=== PATIENT | male | born 1955 | race Caucasian/White ===

== ENCOUNTER 2022-07-09 23:11 | Emergency (ER) | payer MEDICARE, SELFPAY ==
[2022-07-09 23:22] VITALS: BP 138/82; PULSE 74; RESP 16; TEMP 37.7; O2SAT 94; BMI 27.4
--- NOTE | 2022-07-09 23:41 | CRLHL7_ITS ---
For Patients: As a result of the Century Cures Act, medical imaging exams and procedure reports are released immediately into your electronic medical record. You may view this report before your referring provider. If you have questions, please contact your health care provider. INDICATION: .Shortness of breath. TECHNIQUE: Chest 1 view. COMPARISON: 11/23/2021. FINDINGS: Cardiovascular and mediastinum: Heart size and vasculature are normal in caliber and appearance. Lungs and pleural spaces: Lungs are clear. No sign of infiltrate or mass. No sign of pleural effusion. No pneumothorax. Bones and soft tissues: No significant findings. IMPRESSION: Unremarkable chest. Dictated by Corey Augustin MD @ 07/10/2022 12:38:02 AM (Electronically Signed)
[2022-07-10 00:12] LABS: Basophils Absolute Auto 0.02 K/uL (0.00-0.30); Basophils Percent Auto 0.4 % (0.0-3.0); Hematocrit 40.9 % (37.0-53.0); Hemoglobin* 14.9 gm/dL (13.5-17.5); Immature Granulocytes Abs Auto 0.01 K/uL (0.00-0.30); Lymphocytes Percent Auto 14.4 % (20-44); Mean Corpuscular HGB Conc 36 gm/dL (32-36); Mean Corpuscular Hemoglobin 31 pg (26-34); Mean Corpuscular Volume 86 fL (80-100); Monocytes Percent Auto 20.7 % (0.0-11.0); Neutrophils Absolute Auto 3.08 K/uL (1.7-7.0); Neutrophils Percent Auto 64.3 % (42.0-72.0); Platelet Count* 139 K/uL (140-440); RDW Coefficient of Variation % 12.7 % (11.5-15.5); Red Blood Count 4.77 m/uL (4.30-5.90); White Blood Count* 4.79 K/uL (4.50-11.00)
[2022-07-10 00:13] LABS: Slide Review Reflex No
[2022-07-10 00:28] LABS: Chloride* 95 mmol/L (96-114)
[2022-07-10 00:29] LABS: Sodium* 136 mmol/L (135-149)
[2022-07-10 00:32] LABS: Blood Urea Nitrogen* 19 mg/dL (7-30); Calcium* 8.6 mg/dL (8.4-10.6); Carbon Dioxide* 29 mmol/L (20-32); Creatinine* 1.1 mg/dL (0.5-1.5); Est. Creatinine Clearance* 64.77; Estimated Glomerular Filt Rate 75 ml/min; Glucose* 114 mg/dL (60-115)
[2022-07-10 00:33] LABS: Potassium* 2.8 mmol/L (3.6-5.1)
--- NOTE | 2022-07-10 00:34 | ED.NURSE ---
critical potassium 2.8 updated to Block
[2022-07-10] MEDS: POTASSIUM BICARB 25 MEQ EFFERVESCENT TAB 50 MEQ PO (00:49)
[2022-07-10 00:56] LABS: Magnesium* 1.6 mg/dL (1.5-2.6)
--- NOTE | 2022-07-10 01:10 | ED_ITS ---
HPI - General Adult General Date Seen: 07/10/22 Chief complaint: Fever Stated complaint: Covid+ Time Seen by Provider: 07/10/22 00:04 Source: patient History of Present Illness HPI narrative: Patient is a 66-year-old male who has been sick for 2 days with fever, cough, body aches, fatigue. He took a COVID test at home yesterday which was positive. He is vaccinated, believes he has had COVID twice previously, once before the pandemic really started, and once last winter. He feels worse this time than previously. He does take Eliquis for atrial fibrillation. He has not had significant shortness of breath. No chest pain. No vomiting or diarrhea. Just feels generally poorly. He has been taking ibuprofen, he was under the impression that he was not supposed to take Tylenol because of his anticoagulation. His thinks that he has that wrong. Related Data Home Medications Medication Instructions Recorded Confirmed amlodipine 5 mg tablet mg 07/09/22 apixaban 5 mg tablet (Eliquis) mg 07/09/22 atorvastatin 40 mg tablet mg 07/09/22 chlorthalidone 25 mg tablet mg 07/09/22 fluticasone propionate 50 intranasal 07/09/22 mcg/actuation nasal spray,suspension losartan 50 mg tablet mg 07/09/22 meloxicam 15 mg tablet mg 07/09/22 metoprolol tartrate 25 mg tablet mg 07/09/22 omeprazole 20 mg capsule,delayed mg 07/09/22 release Previous Rx's Medication Instructions Recorded potassium chloride 20 mEq 20 meq PO DAILY #10 tabs 07/10/22 tablet,extended release Allergies Allergy/AdvReac Type Severity Reaction Status Date / Time No Known Drug Allergies Allergy Verified 07/09/22 23:25 Review of Systems Status of ROS: Reports: 10 or more systems reviewed and unremarkable except as noted in History and below [facility] Medical History Aortic dilatation Aortic root dilation Atrial fibrillation Dysphagia Hyperlipidemia Hypertension Low testosterone level in male Meningioma Obstructive sleep apnea Surgical History History of cataract surgery History of radiofrequency ablation procedure for cardiac arrhythmia Social History Smoking Status: Never smoker Do you use any of these nicotine containing products: None How often do you have a drink containing alcohol: never AUDIT-C Alcohol total score: 0 Non-prescribed substance use: marijuana (any form) Exam Narrative: Exam Narrative: Vital signs as noted below. In general, an alert, nontoxic man. Breathing easily. Head: Normocephalic, atraumatic. Eyes: Pupils are equal reactive. Extraocular movements are full. Conjunctivae are normal. ENT: Mucous membranes are moist. Throat is normal. Neck: Supple without lymphadenopathy. Heart: Regular rate and rhythm. No murmur or rub. Lungs: Clear bilaterally. No increased work of breathing, crackles or wheezes. Abdomen: Soft and nontender. Obese. Extremities: Well perfused. No edema. No calf tenderness. Pulses intact. Neurologic: Patient is alert and oriented to person and place. Speech is fluent. Face is symmetric. Moves all extremities equally. Affect: Normal. Skin: Warm and dry. Well perfused. Const: Vital Signs, click to edit/add: Vital Signs - 24 hr 07/09/22 23:22 Temperature 99.9 F H Pulse Rate [Left P ulse Oximeter] 74 Respiratory Rate 16 Blood Pressure [Le ft Upper Arm] 138/82 Pulse Oximetry 94 Oxygen Delivery Me thod Room Air Documenting provider has reviewed patient's vital signs: yes Course Course Hospital Course: Patient had a chest x-ray which by my review was unremarkable. Final radiology report was likewise unremarkable. I do not see any evidence of COVID pneumonia or bacterial pneumonia. His lungs are clear, he is not showing any signs of respiratory distress. Does not have any wheezing. I did do a CBC and metabolic panel. His white blood cell count is normal at this time. Platelets are just a tiny bit low. His metabolic panel is remarkable only for a potassium of 2.8. His creatinine is normal. I did check a magnesium which was 1.6. In reviewing his medications, he is on chlorthalidone, and I wonder if that is contributing to his hypokalemia. I gave him 50 mcg of potassium here. He is very eager to go home, it is the middle the night. He assures me that he will talk with his primary doctor tomorrow, he is not really interested in staying further for a recheck of his potassium. As such, I am going to let him go home, I have given a prescription for further potassium replacement at home, and I have asked him at least in the short term to hold his chlorthalidone in case that is contributing to his hypokalemia. Discussed that if he is feeling worse in any way, worsening weakness, shortness of breath, or any other acute worsening he should return to the emergency department. Also discussed that it is very important that he follow this issue up, as we are stopping his chlorthalidone which may affect his blood pressure, and also replacing his potassium at the same time. Discussed that elevated potassium is even more are you bleed dangerous than low potassium, so this will need to be followed and rechecked. Verbalizes understanding. In terms of his COVID, he is not eligible for Paxlovid due to his Eliquis. We did talk about the option of remdesivir. At this time he is not interested in that. They are going to do a little more looking into it, and if they decide to pursue it, he understands that he will need to come back in the next day or two as it needs to be started within the 1st 5 days of onset of symptoms. Vital Signs Vital signs: Initial Vital Signs Temperature 99.9 F H 07/09/22 23:22 Temperature Source Temporal Artery Scan 07/09/22 23:22 Pulse Rate 74 07/09/22 23:22 Pulse Rhythm 07/09/22 23:22 Respiratory Rate 16 07/09/22 23:22 Blood Pressure 138/82 07/09/22 23:22 Blood Pressure Mean 100 07/09/22 23:22 Blood Pressure Position Sitting 07/09/22 23:22 Pulse Oximetry 94 07/09/22 23:22 Oxygen Delivery Method 07/09/22 23:22 Vital Signs Temperature 99.9 F H 07/09/22 23:22 Pulse Rate 74 07/09/22 23:22 Respiratory Rate 16 07/09/22 23:22 Blood Pressure 138/82 07/09/22 23:22 Pulse Oximetry 94 07/09/22 23:22 Oxygen Delivery Method 07/09/22 23:22 Temperature 99.9 F H 07/09/22 23:22 Pulse Rate 74 07/09/22 23:22 Respiratory Rate 16 07/09/22 23:22 Blood Pressure 138/82 07/09/22 23:22 Pulse Oximetry 94 07/09/22 23:22 Oxygen Delivery Method 07/09/22 23:22 Medical Decision Making Lab Data Labs: Lab Results 07/10/22 07/10/22 07/10/22 Range/Units 00:00 00:00 00:00 WBC 4.79 (4.50-11.00) K/uL RBC 4.77 (4.30-5.90) m/uL Hgb 14.9 (13.5-17.5) gm/dL Hct 40.9 (37.0-53.0) % MCV 86 (80-100) fL MCH 31 (26-34) pg MCHC 36 (32-36) gm/dL RDW Coeff of Terra 12.7 (11.5-15.5) % Plt Count 139 L (140-440) K/uL Neut % (Auto) 64.3 (42.0-72.0) % Lymph % (Auto) 14.4 L (20-44) % Childress % (Auto) 20.7 H (0.0-11.0) % Eos % (Auto) 0.0 (0.0-7.0) % Baso % (Auto) 0.4 (0.0-3.0) % Neut # (Auto) 3.08 (1.7-7.0) K/uL Lymph # (Auto) 0.70 L (0.90-2.90) K/uL Childress # (Auto) 1.00 H (0.00-0.90) K/UL Eos # (Auto) 0.00 (0.00-0.50) K/uL Baso # (Auto) 0.02 (0.00-0.30) K/uL Abs Immat Gran (auto) 0.01 (0.00-0.30) K/uL Sodium 136 (135-149) mmol/L Potassium 2.8 L* (3.6-5.1) mmol/L Chloride 95 L (96-114) mmol/L Carbon Dioxide 29 (20-32) mmol/L BUN 19 (7-30) mg/dL Creatinine 1.1 (0.5-1.5) mg/dL Estimated Creat Clear 64.77 Estimated GFR 75 ml/min Glucose 114 (60-115) mg/dL Calcium 8.6 (8.4-10.6) mg/dL Magnesium 1.6 (1.5-2.6) mg/dL Discharge Plan Discharge Clinical Impression: COVID-19, Hypokalemia Patient Disposition: Home, Self-Care Condition: Stable Instructions: Hypokalemia (ED), COVID-19 (Coronavirus Disease 2019) (ED) Additional Instructions: 1: Remdesivir infusion is an option for you as long as you start it within 5 days of onset of symptoms. Return to the ER if you change your mind about starting this medication. Likewise, if you are feeling worse, developed more shortness of breath or other acute worsening, return at any time to the emergency department. 2: Your potassium was low here today. For now, I would like you to hold your chlorthalidone. Take potassium supplements as prescribed. Call your primary clinic tomorrow to discuss a plan. Prescriptions: New potassium chloride 20 mEq tablet extended release 20 meq PO DAILY Qty: 10 2RF No Action losartan 50 mg tablet atorvastatin 40 mg tablet meloxicam 15 mg tablet chlorthalidone 25 mg tablet amlodipine 5 mg tablet omeprazole 20 mg capsule,delayed release(DR/EC) Label Comments: TAKE 1 CAPSULE BY MOUTH EVERY DAY BEFORE A MEAL fluticasone propionate 50 mcg/actuation spray,suspension INTRANASAL Label Comments: INHALE 2 PUFFS INTO AFFECTED NOSTRILS ONCE DAILY metoprolol tartrate 25 mg tablet Eliquis 5 mg tablet Follow Up/Referrals: Provider,Not a Local [Referring] - Stand Alone Forms: [employer] Info Instructions
[2022-07-10 01:15] VITALS: BP 122/76; PULSE 69; O2SAT 94
[2022-07-10 01:30] VITALS: RESP 16; TEMP 37.7; O2SAT 94
== END 2022-07-10 01:20 | disposition home or self-care (01) ==
PROVIDERS: Family Medicine; Emergency Provider Emergency Medicine; PCP Physician Assistant
DX: U07.1 COVID-19 (principal); E87.6 Hypokalemia
CPT/HCPCS: 36415; 71045; 80048; 83735; 85025; 99284; A9270

== ENCOUNTER 2024-07-20 12:03 | Observation (INO) | payer MEDICARE, SELFPAY ==
[2024-07-20] VITALS (47 sets, daily range): BP systolic 60–130; BP diastolic 31–86; PULSE 50–84; RESP 18–20; TEMP 36.2–37; O2SAT 87–100; BMI 41.5; BMI 43.5
--- NOTE | 2024-07-20 12:33 | CRLHL7_ITS ---
For Patients: As a result of the Cures Act, medical imaging exams and procedure reports are released immediately into your electronic medical record. You may view this report before your referring provider. If you have questions, please contact your health care provider. INDICATION: Chest pain. TECHNIQUE: Chest/left ribs, 4 views. COMPARISON: None. FINDINGS: Cardiovascular and mediastinum: Heart size and vasculature are normal in caliber and appearance. Lungs and pleural spaces: Lungs are clear. No sign of infiltrate or mass. No sign of pleural effusion. No pneumothorax. Bones and soft tissues: Acute minimally displaced left 11th rib fracture. IMPRESSION: Acute minimally displaced left 11th rib fracture. Dictated by Paramjit Correa MD @ 07/20/2024 1:01:39 PM (Electronically Signed)
[2024-07-20 12:43] LABS: Basophils Percent Auto 0.4 % (0.0-3.0); Hemoglobin* 15.1 gm/dL (13.5-17.5); Immature Granulocytes Pct Auto 0.4 %; Lymphocytes Percent Auto 12.5 % (20-44); Mean Corpuscular HGB Conc 35 gm/dL (32-36); Mean Corpuscular Hemoglobin 30 pg (26-34); Mean Corpuscular Volume 86 fL (80-100); Monocytes Percent Auto 7.5 % (0.0-11.0); Neutrophils Percent Auto 78.2 % (42.0-72.0); Platelet Count* 209 K/uL (140-440); RDW Coefficient of Variation % 12.7 % (11.5-15.5); Red Blood Count 5.01 m/uL (4.30-5.90); White Blood Count* 11.24 K/uL (4.50-11.00)
[2024-07-20 12:44] LABS: Lactate* 2.6 mmol/L (0.5-1.9)
[2024-07-20 12:45] LABS: Slide Review Reflex No
[2024-07-20] MEDS: 0.9 % SODIUM CHLORIDE 1000 ml 1,000 ML IV (12:45)
[2024-07-20 12:59] LABS: Albumin* 4.4 g/dL (3.3-5.0)
[2024-07-20 13:00] LABS: Chloride* 99 mmol/L (96-114); Potassium* 3.3 mmol/L (3.6-5.1); Sodium* 134 mmol/L (135-149)
[2024-07-20 13:02] LABS: Creatinine* 1.1 mg/dL (0.5-1.5); Est. Creatinine Clearance* 60.93; Estimated Glomerular Filt Rate 74 ml/min
[2024-07-20 13:03] LABS: Alanine Aminotransferase* 24 U/L (4-50); Alkaline Phosphatase* 89 U/L (40-150); Anion Gap 9 mEq/L (7-15); Aspartate Amino Transferase* 30 U/L (12-35); Bilirubin Direct* 0.3 mg/dL (0.0-0.5); Bilirubin Total* 1.5 mg/dL (0.1-1.5); Blood Urea Nitrogen* 20 mg/dL (7-30); Carbon Dioxide* 26 mmol/L (20-32); Glucose* 150 mg/dL (60-115)
--- NOTE | 2024-07-20 13:03 | ED.GENADULT ---
HPI - General Adult General Chief complaint: Hypotension Stated complaint: dizzy Time Seen by Provider: 07/20/24 12:27 History of Present Illness HPI narrative: 68-year-old male presenting today with hypotension. Patient had a prostate biopsy done earlier this morning, few hours ago. The when out to eat for breakfast. During breakfast he started feeling unwell, lightheaded. He stood up to go to the car and fell over hitting his left lateral chest wall against the cement fireplace. He complains of pain at the site of impact. He states that he still feels unwell and slightly lightheaded. He denies any vertigo, chest pain, diaphoresis, shortness of breath. He denies hitting his head or losing consciousness. He denies any vision changes or ringing in his ears. He denies any rectal or urethral bleeding since his procedure. He denies abdominal discomfort or increased rectal or pain. Patient does have a history of atrial fibrillation and is anticoagulated, has not taken his Eliquis for about a week. Did take his blood pressure medications this morning. Related Data Home Medications ?Medication ?Instructions ?Recorded ?Confirmed amlodipine 5 mg tablet 10 mg 07/09/22 apixaban 5 mg tablet (Eliquis) 5 mg Q12H 07/09/22 atorvastatin 40 mg tablet 40 mg 07/09/22 metoprolol tartrate 25 mg tablet 25 mg 07/09/22 omeprazole 20 mg capsule,delayed 20 mg 07/09/22 release [place]-3 07/20/24 losartan 100 1 tab PO DAILY 07/20/24 07/20/24 mg-hydrochlorothiazide 25 mg tablet (Hyzaar) multivitamin 07/20/24 Allergies Allergy/AdvReac Type Severity Reaction Status Date / Time No Known Drug Allergies Allergy Verified 07/20/24 17:19 Review of Systems Status of ROS: Reports: 10 or more systems reviewed and unremarkable except as noted in History and below [facility] Medical History Aortic dilatation ?I77.819 - Aortic ectasia, unspecified site (ICD-10) Meningioma ?D32.9 - Benign neoplasm of meninges, unspecified (ICD-10) Dysphagia ?R13.10 - Dysphagia, unspecified (ICD-10) Hyperlipidemia ?E78.5 - Hyperlipidemia, unspecified (ICD-10) Aortic root dilation ?I77.810 - Thoracic aortic ectasia (ICD-10) Obstructive sleep apnea ?G47.33 - Obstructive sleep apnea (adult) (pediatric) (ICD-10) Hypertension ?I10 - Essential (primary) hypertension (ICD-10) Atrial fibrillation ?I48.91 - Unspecified atrial fibrillation (ICD-10) Low testosterone level in male ?R79.89 - Other specified abnormal findings of blood chemistry (ICD-10) Surgical History History of cataract surgery ?Z98.49 - Cataract extraction status, unspecified eye (ICD-10) History of radiofrequency ablation procedure for cardiac arrhythmia ?Z98.890 - Other specified postprocedural states (ICD-10) Social History Smoking Status: Never smoker Do you use any of these nicotine containing products: None How often do you have a drink containing alcohol: never AUDIT-C Alcohol total score: 0 Non-prescribed substance use: marijuana (any form) Exam Narrative: Exam Narrative: Well-nourished well-developed patient in no acute distress. Alert and oriented. Answers questions appropriately. Mood and affect are appropriate. Thoughts are goal oriented and rational. No tangential or magical thinking noted. Patient speaks in full sentences without needing to catch his breath. Patient is hypotensive. HEENT: Normocephalic atraumatic. Pupils are equally round reactive to light. Extraocular muscles are intact. Conjunctivae are moist without any icterus noted. Moist mucous membranes. Posterior pharynx is normal. Neck is soft without any lymphadenopathy or thyromegaly. No masses are appreciated. Cardiovascular: Heart is regular rate and rhythm S1 and S2 are present without any murmurs. Lungs: Clear to auscultation bilaterally no wheezes rhonchi or rales are appreciated. Patient takes deep breaths without any discomfort. Abdomen: Soft and nontender nondistended with normal bowel sounds. No guarding or rebound. Extremities: Bilateral lower extremities are without edema. Skin: Well perfused without any obvious rashes. Const: Vital Signs, click to edit/add: Vital Signs - 24 hr 07/20/24 12:09 07/20/24 12:34 07/20/24 12:37 Temperature Pulse Rate Respiratory Rate 18 Blood Pressure 90/51 L 87/40 L Blood Pressure [Le ft Upper Arm] 60/31 L Pulse Oximetry 92 Oxygen Delivery Me thod Room Air 07/20/24 12:38 07/20/24 12:42 07/20/24 12:58 Temperature Pulse Rate 50 L 55 L Respiratory Rate Blood Pressure 93/52 L 82/35 L Blood Pressure [Le ft Upper Arm] Pulse Oximetry 94 94 Oxygen Delivery Me thod 07/20/24 12:59 07/20/24 13:00 07/20/24 13:03 Temperature Pulse Rate 53 L 56 L 56 L Respiratory Rate Blood Pressure 81/44 L Blood Pressure [Le ft Upper Arm] Pulse Oximetry 94 95 93 Oxygen Delivery Me thod 07/20/24 13:04 07/20/24 13:06 07/20/24 13:15 Temperature Pulse Rate 57 L 60 Respiratory Rate Blood Pressure Blood Pressure [Le ft Upper Arm] Pulse Oximetry 96 97 96 Oxygen Delivery Me thod 07/20/24 13:17 07/20/24 13:18 07/20/24 13:22 Temperature Pulse Rate 57 L 60 66 Respiratory Rate Blood Pressure 100/58 L 97/86 Blood Pressure [Le ft Upper Arm] Pulse Oximetry 96 96 97 Oxygen Delivery Me thod 07/20/24 13:27 07/20/24 13:30 07/20/24 13:32 Temperature Pulse Rate 51 L 54 L 58 L Respiratory Rate Blood Pressure 102/61 94/46 L Blood Pressure [Le ft Upper Arm] Pulse Oximetry 95 96 97 Oxygen Delivery Me thod 07/20/24 13:37 07/20/24 13:43 07/20/24 13:52 Temperature Pulse Rate 56 L 70 69 Respiratory Rate Blood Pressure 114/63 108/75 112/64 Blood Pressure [Le ft Upper Arm] Pulse Oximetry 97 96 95 Oxygen Delivery Me thod 07/20/24 13:57 07/20/24 14:17 07/20/24 14:48 Temperature Pulse Rate 69 74 68 Respiratory Rate Blood Pressure 110/63 110/67 114/52 L Blood Pressure [Le ft Upper Arm] Pulse Oximetry 95 94 92 Oxygen Delivery Me thod 07/20/24 15:02 07/20/24 15:03 07/20/24 15:30 Temperature Pulse Rate 73 71 73 Respiratory Rate Blood Pressure 115/73 Blood Pressure [Le ft Upper Arm] Pulse Oximetry 92 92 95 Oxygen Delivery Me thod 07/20/24 15:45 07/20/24 16:00 07/20/24 16:02 Temperature Pulse Rate 75 74 70 Respiratory Rate Blood Pressure 105/60 Blood Pressure [Le ft Upper Arm] Pulse Oximetry 92 93 92 Oxygen Delivery Ky thod 07/20/24 16:15 07/20/24 16:44 07/20/24 16:45 Temperature Pulse Rate 78 78 78 Respiratory Rate Blood Pressure Blood Pressure [Le ft Upper Arm] Pulse Oximetry 93 96 100 Oxygen Delivery Ky thod 07/20/24 16:46 07/20/24 17:00 07/20/24 17:02 Temperature Pulse Rate 71 69 72 Respiratory Rate Blood Pressure 121/72 109/59 L Blood Pressure [Le ft Upper Arm] Pulse Oximetry 100 92 92 Oxygen Delivery Ky thod 07/20/24 17:15 07/20/24 17:30 07/20/24 17:33 Temperature Pulse Rate 70 58 L 67 Respiratory Rate Blood Pressure 111/53 L Blood Pressure [Le ft Upper Arm] Pulse Oximetry 91 94 87 L Oxygen Delivery Ky thod 07/20/24 17:45 07/20/24 17:55 Temperature 97.4 F L Pulse Rate 57 L Respiratory Rate 20 Blood Pressure Blood Pressure [Le ft Upper Arm] Pulse Oximetry 94 Oxygen Delivery Me thod Course Course ED Course: IV is established normal saline started. Labs are drawn. EKG, read by me, shows sinus bradycardia with a pulse of 53. I spoke to Dr. Arturo Benitez, who did the patient's procedure this morning. He stated that the procedure was uncomplicated. He does not expect there to be significant internal hemorrhage. CBC shows a white cell count of 11.2, 78% neutrophils. Sodium and potassium both slightly low at 134 3.3. Remainder of chemistries are unremarkable. Lactate is elevated at 2.6. Normal LFTs. Normal troponin. D-dimer is markedly elevated at greater than 20. Differential diagnoses for hypotension at this time include PE, hemorrhage status post prostate procedure, dehydration. Less likely but not impossible would include AAA rupture, postprocedure sepsis. At this time a chest abdomen pelvis CT is recommended, however our CT scanner is not operative for another 2 hours. Patient did respond to IV fluids blood pressure is going up into the 1 teens systolic. Because of this we felt that it was okay to wait. We did start Zosyn at this time as well. Repeat lactate was improved at 1.8. During this time of observation patient did not feel lightheaded, no chest pain or shortness of breath. No abdominal or rectal pain. No rectal bleeding. Chest, abdomen, pelvis CT did not show any acute abnormality note explain hypotension. Did speak to the radiologist about the possibility of a PE, he stated that there was no evidence of significant PE at this time. There could be a potential small PE however that would not explain his significant hypotension. Urine and blood cultures pending at this time. Smoked or hospitalist to accept the patient for admission at this time given that he has unexplained hypotension. Vital Signs Vital signs: Initial Vital Signs Respiratory Rate 18 07/20/24 12:09 Blood Pressure 60/31 L 07/20/24 12:09 Blood Pressure Mean 40 L 07/20/24 12:09 Blood Pressure Position Sitting 07/20/24 12:09 Pulse Oximetry 92 07/20/24 12:09 Oxygen Delivery Method Room Air 07/20/24 12:09 Vital Signs Respiratory Rate 18 07/20/24 12:09 Blood Pressure 60/31 L 07/20/24 12:09 Pulse Oximetry 92 07/20/24 12:09 Oxygen Delivery Method Room Air 07/20/24 12:09 Temperature 97.4 F L 07/20/24 17:55 Pulse Rate 57 L 07/20/24 17:45 Respiratory Rate 20 07/20/24 17:55 Blood Pressure 111/53 L 07/20/24 17:33 Pulse Oximetry 94 07/20/24 17:45 Oxygen Delivery Method Room Air 07/20/24 12:09 Medications Administered Medications: Discontinued Medications Generic Name Dose Route Start Last Admin Trade Name Freq PRN Reason Stop Dose Admin Hydrocodone Bitart/Acetaminophen 1 tab 07/20/24 13:45 07/20/24 14:20 Hydrocodone-Acetamin 5-325 Mg 1 Tab PO 07/20/24 13:46 1 tab ONCE ONE Administration Sodium Chloride 1,000 mls @ 1,000 mls/hr 07/20/24 12:45 07/20/24 14:49 0.9 % Sodium Chloride 1000 Ml IV 07/20/24 13:44 Infused .Q1H MAIRA Infusion Piperacillin Sod/Tazobactam 100 mls @ 200 mls/hr 07/20/24 13:22 07/20/24 15:27 Sod 4.5 gm/ Sodium Chloride IVPB 07/20/24 13:23 Infused ONCE ONE Infusion Medical Decision Making MDM Narrative Medical decision making narrative: 68-year-old male unexplained hypotension. Patient will be admitted for further management Lab Data Lab results reviewed: Yes I reviewed the patient's lab results Labs: Lab Results 07/20/24 07/20/24 07/20/24 Range/Units 12:35 14:40 15:34 WBC 11.24 H 13.01 H (4.50-11.00) K/uL RBC 5.01 5.27 (4.30-5.90) m/uL Hgb 15.1 15.9 (13.5-17.5) gm/dL Hct 43.0 45.1 (37.0-53.0) % MCV 86 86 (80-100) fL MCH 30 30 (26-34) pg MCHC 35 35 (32-36) gm/dL RDW Coeff of Terra 12.7 12.6 (11.5-15.5) % Plt Count 209 174 (140-440) K/uL Neut % (Auto) 78.2 H 86.9 H (42.0-72.0) % Lymph % (Auto) 12.5 L 5.5 L (20-44) % [place] % (Auto) 7.5 7.0 (0.0-11.0) % Eos % (Auto) 1.0 0.2 (0.0-7.0) % Baso % (Auto) 0.4 0.2 (0.0-3.0) % Neut # (Auto) 8.80 H 11.30 H (1.7-7.0) K/uL Lymph # (Auto) 1.40 0.70 L (0.90-2.90) K/uL [place] # (Auto) 0.80 0.90 (0.00-0.90) K/UL Eos # (Auto) 0.10 0.00 (0.00-0.50) K/uL Baso # (Auto) 0.00 0.00 (0.00-0.30) K/uL Abs Immat Gran (auto) 0.00 0.00 (0.00-0.30) K/uL Imm/Tot Granulo (auto) 0.4 0.2 % D-Dimer Quant (PE/DVT) > 20.00 H (0.00-0.50) ug/ml Sodium 134 L (135-149) mmol/L Potassium 3.3 L (3.6-5.1) mmol/L Chloride 99 (96-114) mmol/L Carbon Dioxide 26 (20-32) mmol/L Anion Gap 9 (7-15) mEq/L BUN 20 (7-30) mg/dL Creatinine 1.1 (0.5-1.5) mg/dL Estimated Creat Clear 60.93 Estimated GFR 74 ml/min Glucose 150 H (60-115) mg/dL Lactate 2.6 H 1.8 (0.5-1.9) mmol/L Calcium 9.0 (8.4-10.6) mg/dL Total Bilirubin 1.5 (0.1-1.5) mg/dL Direct Bilirubin 0.3 (0.0-0.5) mg/dL AST 30 (12-35) U/L ALT 24 (4-50) U/L Alkaline Phosphatase 89 (40-150) U/L Troponin I < 0.01 L (0.01-0.04) ng/mL Total Protein 7.0 (6.0-8.3) g/dL Albumin 4.4 (3.3-5.0) g/dL Imaging Data Chest x-ray: Attestation: I have reviewed the pertinent imaging results. Radiologist's impression: Chest/left ribs, 4 views. COMPARISON: None. FINDINGS: Cardiovascular and mediastinum: Heart size and vasculature are normal in caliber and appearance. Lungs and pleural spaces: Lungs are clear. No sign of infiltrate or mass. No sign of pleural effusion. No pneumothorax. Bones and soft tissues: Acute minimally displaced left 11th rib fracture. IMPRESSION: Acute minimally displaced left 11th rib fracture. CT Chest/Ab/Pelvis: Attestation: I have reviewed the pertinent imaging results. Radiologist's impression: FINDINGS: CHEST: Cardiovascular structures: Heart size is normal. Coronary artery calcifications. Thoracic aorta and main pulmonary artery are normal in caliber. Mediastinum and osiot: No mass or adenopathy. Lungs and pleura: Scattered atelectasis.. No suspicious nodules, infiltrates, or effusions. No pneumothorax. Chest wall and axilla: No mass or adenopathy. Bones: No suspicious bone lesions. Unremarkable for age. ABDOMEN AND PELVIS: Liver: Mild decreased hepatic attenuation. Few scattered tiny hepatic cysts. Gallbladder and bile ducts: Cholecystectomy Pancreas: Unremarkable. Spleen: Unremarkable. Adrenal glands: Unremarkable. Kidneys: Unremarkable. GI tract: Mild perirectal wall thickening and inflammatory stranding. Colonic diverticulosis. Trace mesenteric inflammation about the proximal sigmoid colon. No bowel obstruction. Vascular structures: Unremarkable. Lymph nodes: Unremarkable. Miscellaneous: Small volume peritoneal air in the right mesorectal space (series 2/image 265). No free air or significant free fluid. Pelvic Organs: Mild prostatomegaly subtle periprostatic inflammatory stranding. Bones: No suspicious bone lesions. Unremarkable for age. IMPRESSION: Mild prostatomegaly with mild rectal wall thickening and subtle periprostatic and perirectal inflammatory stranding. Additional small volume peritoneal air in the right mesorectal space. Constellation of findings are likely related to recent prostate biopsy. Superimposed prostatitis and proctitis could have a similar appearance and should be clinically excluded. No drainable fluid collections or large volume free intraperitoneal air. Colonic diverticulosis with trace mesenteric edema about the proximal sigmoid colon. Early acute diverticulitis not excluded. Recommend correlation with localized physical examination and laboratory values. Otherwise, no acute intra thoracic or intra-abdominal/pelvic abnormality. Additional chronic findings as above. Discharge Plan Discharge Clinical Impression: Acute hypotension Patient Disposition: Admitted As Observation Condition: Stable Prescriptions: No Action atorvastatin 40 mg tablet 40 mg amlodipine 5 mg tablet 10 mg omeprazole 20 mg capsule,delayed release(DR/EC) 20 mg Patient Comments: TAKE 1 CAPSULE BY MOUTH EVERY DAY BEFORE A MEAL metoprolol tartrate 25 mg tablet 25 mg Eliquis 5 mg tablet 5 mg Q12H multivitamin [place]-3 losartan-hydrochlorothiazide [Hyzaar] 100-25 mg tablet 1 tab PO DAILY Follow Up/Referrals: Alia Klein PA [Primary Care Provider] -
[2024-07-20 13:15] LABS: Troponin I* < 0.01 ng/mL (0.01-0.04)
[2024-07-20] MEDS: HYDROCODONE-ACETAMIN 5-325 MG 1 TAB PO (14:20)
[2024-07-20] MEDS: PIPERACILLIN/TAZOBACTAM 4.5 GM in 0.9 % SODIUM CHLORIDE Mini-bag 100 ML IVPB (14:50)
[2024-07-20 14:51] LABS: Basophils Percent Auto 0.2 % (0.0-3.0); Eosinophils Percent Auto 0.2 % (0.0-7.0); Hematocrit 45.1 % (37.0-53.0); Hemoglobin* 15.9 gm/dL (13.5-17.5); Immature Granulocytes Pct Auto 0.2 %; Lymphocytes Percent Auto 5.5 % (20-44); Mean Corpuscular HGB Conc 35 gm/dL (32-36); Mean Corpuscular Hemoglobin 30 pg (26-34); Mean Corpuscular Volume 86 fL (80-100); Neutrophils Percent Auto 86.9 % (42.0-72.0); Platelet Count* 174 K/uL (140-440); RDW Coefficient of Variation % 12.6 % (11.5-15.5); Red Blood Count 5.27 m/uL (4.30-5.90); White Blood Count* 13.01 K/uL (4.50-11.00)
[2024-07-20 14:53] LABS: Slide Review Reflex No
[2024-07-20 14:54] LABS: D Dimer Quantitative* > 20.00 ug/ml (0.00-0.50)
--- NOTE | 2024-07-20 14:59 | CT_ITS ---
Patient: DON TOM Facility:?[facility] R[facility] Patient ID:?[id number] Site Patient ID:?[id number]. Site :?[id number] Study:?CT-Chest/Abd/Pelvis W/ 130CC ISOVUE 370-07/20/2024 5:10:50 PM Ordering Physician:ANA Final Report: INDICATION: Hypotension, dizziness, recent prostate biopsy TECHNIQUE: CT chest, abdomen and pelvis acquired with 130 milliliters Isovue 370 IV contrast. COMPARISON: None. FINDINGS: CHEST: Cardiovascular structures: Heart size is normal. Coronary artery calcifications. Thoracic aorta and main pulmonary artery are normal in caliber. Mediastinum and osito: No mass or adenopathy. Lungs and pleura: Scattered atelectasis.. No suspicious nodules, infiltrates, or effusions. No pneumothorax. Chest wall and axilla: No mass or adenopathy. Bones: No suspicious bone lesions. Unremarkable for age. ABDOMEN AND PELVIS: Liver: Mild decreased hepatic attenuation. Few scattered tiny hepatic cysts. Gallbladder and bile ducts: Cholecystectomy Pancreas: Unremarkable. Spleen: Unremarkable. Adrenal glands: Unremarkable. Kidneys: Unremarkable. GI tract: Mild perirectal wall thickening and inflammatory stranding. Colonic diverticulosis. Trace mesenteric inflammation about the proximal sigmoid colon. No bowel obstruction. Vascular structures: Unremarkable. Lymph nodes: Unremarkable. Miscellaneous: Small volume peritoneal air in the right mesorectal space (series 2/image 265). No free air or significant free fluid. Pelvic Organs: Mild prostatomegaly subtle periprostatic inflammatory stranding. Bones: No suspicious bone lesions. Unremarkable for age. IMPRESSION: Mild prostatomegaly with mild rectal wall thickening and subtle periprostatic and perirectal inflammatory stranding. Additional small volume peritoneal air in the right mesorectal space. Constellation of findings are likely related to recent prostate biopsy. Superimposed prostatitis and proctitis could have a similar appearance and should be clinically excluded. No drainable fluid collections or large volume free intraperitoneal air. Colonic diverticulosis with trace mesenteric edema about the proximal sigmoid colon. Early acute diverticulitis not excluded. Recommend correlation with localized physical examination and laboratory values. Otherwise, no acute intra thoracic or intra-abdominal/pelvic abnormality. Additional chronic findings as above. Please note that all CT scans at this facility use dose modulation, iterative reconstruction, and/or weight-based dosing when appropriate to reduce radiation dose to as low as reasonably achievable. Dictated by Paramjit Correa MD @ 07/20/2024 5:40:22 PM Signed by:?Paramjit Correa MD @07/20/2024 5:40:22 PM (Electronic Signature)
[2024-07-20 15:41] LABS: Lactate* 1.8 mmol/L (0.5-1.9)
[2024-07-20 18:36] LABS: Appearance Urine Clear (Clear); Bilirubin Urine Negative (Negative); Blood Urine 2+ (Negative); Color Urine Yellow (Yellow); Glucose Urine Negative (Negative); Ketones Urine Negative (Negative); Leukocyte Esterase Urine Negative (Negative); Nitrite Urine Negative (Negative); Protein Urine Negative (Negative); Urobilinogen Urine 0.2 (0.2-1.0)
[2024-07-20 18:51] LABS: Squamous Epithelial Cell Urine Few (None-Few); WBC Urine 0-2 (0-5)
[2024-07-20 19:09] LABS: SARS PCR* Negative SARS-CoV-2 (Negative)
--- NOTE | 2024-07-20 19:54 | P.IMHP_ITS ---
Hospitalist- H&P: HPI History of Present Illness Date Seen: 07/20/24 Chief complaint: dizzy Narrative: Cesar Bishop is a 68 year old male who presented to the emergency room this afternoon after falling in a [employer] restaurant. He was there for brunch following a prostate biopsy; had eaten since last night. While waiting for his food, he became acutely nauseated and lightheaded; he got up to walk outside but fell (believes he lost consciousness for a brief moment) in the restaurant onto his left back. No head injury. He did not receive any anesthesia during his biopsy took all of his home BP medications this morning. ER Course and Findings: - sinus bradycardia on EKG, negative troponin, elevated D-dimer - lactate 2.6 --> 1.8 after IVFs - BP 60/30 --> 110s/70s after IVFs - afebrile, P 50s/70s, no hypoxia - WBC 13, K 3.3 - L 11th rib fracture - CT C/A/P revealed no abnormalities near biopsy site, no central PE, + diverticulosis (early acute diverticulitis not excluded) - received IV Zosyn x1 in ED Patient admitted given recent biopsy, hypotension, and rib fracture. Upon arrival to the floor, patient is feeling close to baseline. He has no abdominal pain or nausea. He specifically denies chest pain or dyspnea. On Eliquis for h/o a fib; had been holding that for a few days prior to biopsy. Histories updated below. PCP is Dr. Pau Powell at [facility]. Review of Systems Status of ROS: Reports: 10 or more systems reviewed and unremarkable except as noted in History and below Narrative: - notes pitting LE edema, not new - no recurrence of a fib since his ablation in 2020 - occasionally has a tremor of BUEs, no other associated symptoms [facility] Medical History (Updated 07/20/24 @ 23:19 by Sera Mast MD) Aortic dilatation ?I77.819 - Aortic ectasia, unspecified site (ICD-10) Meningioma ?D32.9 - Benign neoplasm of meninges, unspecified (ICD-10) Dysphagia ?R13.10 - Dysphagia, unspecified (ICD-10) Hyperlipidemia ?E78.5 - Hyperlipidemia, unspecified (ICD-10) Aortic root dilation ?I77.810 - Thoracic aortic ectasia (ICD-10) Obstructive sleep apnea ?G47.33 - Obstructive sleep apnea (adult) (pediatric) (ICD-10) Hypertension ?I10 - Essential (primary) hypertension (ICD-10) Atrial fibrillation ?I48.91 - Unspecified atrial fibrillation (ICD-10) Low testosterone level in male ?R79.89 - Other specified abnormal findings of blood chemistry (ICD-10) Surgical History (Updated 07/20/24 @ 19:57 by Sera Mast MD) Hx of prostate biopsy ?Z98.890 - Other specified postprocedural states (ICD-10) History of cataract surgery ?Z98.49 - Cataract extraction status, unspecified eye (ICD-10) History of radiofrequency ablation procedure for cardiac arrhythmia ?Z98.890 - Other specified postprocedural states (ICD-10) Social History (Updated 07/20/24 @ 20:08 by Sera Mast MD) Narrative: Recently retired crew truck driver. Spends part of the year in [place], part in [place] visiting his son. ; ex Tiarra and sister Connie would share medical decision making if needed. No tobacco use, ETOH 2-3 times/week, occasional marijuana. No history of substance withdrawal. Requests Full Code Status. What is your current living situation?: I presently have a place to live Problems where you live: no known problems Problems where you live details: none In the past 12 months, utilities in danger of being shut off: no In past 12 months, lack of transportation kept you from medical appts, meetings, work, or getting things needed for daily living: no In the past 12 mos, have been you worried that your food would run out before you had money to buy more?: never true In the past 12 mos, the food you bought just didn't last and you didn't have money to buy more?: never true Highest level of school completed/degree received: 10th grade Smoking Status: Never smoker Do you use any of these nicotine containing products: None How often do you have a drink containing alcohol: 2-3 times a week Alcohol type: beer How many standard drinks containing alcohol do you have on a typical day: 3 or 4 How often do you have six or more drinks on one occasion: Never AUDIT-C Alcohol total score: 4 Non-prescribed substance use: marijuana (any form) Caffeine: Yes How often does anyone, including family, friends and others, physically hurt you : never How often does anyone, including family, friends and others, insult or talk down to you: never How often does anyone, including family, friends and others, threaten you with harm: never How often does anyone, including family, friends and others, scream or curse at you: never service: No Meds Home Medications and Allergies Home Medications ?Medication ?Instructions ?Recorded ?Confirmed ?Type amlodipine 5 mg tablet 10 mg PO BID 07/09/22 07/20/24 History apixaban 5 mg tablet (Eliquis) 5 mg PO Q12H 07/09/22 07/20/24 History atorvastatin 40 mg tablet 40 mg PO HS 07/09/22 07/20/24 History metoprolol tartrate 25 mg tablet 25 mg PO BID 07/09/22 07/20/24 History omeprazole 20 mg capsule,delayed 20 mg PO DAILY 07/09/22 07/20/24 History release [place]-3 07/20/24 History losartan 100 1 tab PO DAILY 07/20/24 07/20/24 History mg-hydrochlorothiazide 25 mg tablet (Hyzaar) multivitamin 07/20/24 History Allergies Allergy/AdvReac Type Severity Reaction Status Date / Time No Known Drug Allergies Allergy Verified 07/20/24 17:19 Exam Narrative: Exam Narrative: GEN: Alert and oriented, nontoxic. Sitting up in bed and having supper HEENT: EOMIs bilaterally, no scleral icterus CV: RRR, No concerning murmurs, rubs, or gallops R: LCTA bilaterally without concerning wheezing, rales, or rhonchi Ab: soft, nontender to palpation Ext: 2+ pitting edema BLE Skin: No concerning skin lesions or rashes on exposed skin Neuro: No resting tremor, negative Romberg, gait not observed Psych: Appropriate Const: Vital Signs, click to edit/add: Vital Signs - 24 hr 07/20/24 12:09 07/20/24 12:34 07/20/24 12:37 Temperature Pulse Rate Pulse Rate [Right Radial] Respiratory Rate 18 Blood Pressure 90/51 L 87/40 L Blood Pressure [Le ft Upper Arm] 60/31 L Blood Pressure [Ri ght Arm] Pulse Oximetry 92 Oxygen Delivery Me thod Room Air 07/20/24 12:38 07/20/24 12:42 07/20/24 12:58 Temperature Pulse Rate 50 L 55 L Pulse Rate [Right Radial] Respiratory Rate Blood Pressure 93/52 L 82/35 L Blood Pressure [Le ft Upper Arm] Blood Pressure [Ri ght Arm] Pulse Oximetry 94 94 Oxygen Delivery Me thod 07/20/24 12:59 07/20/24 13:00 07/20/24 13:03 Temperature Pulse Rate 53 L 56 L 56 L Pulse Rate [Right Radial] Respiratory Rate Blood Pressure 81/44 L Blood Pressure [Le ft Upper Arm] Blood Pressure [Ri ght Arm] Pulse Oximetry 94 95 93 Oxygen Delivery Me thod 07/20/24 13:04 07/20/24 13:06 07/20/24 13:15 Temperature Pulse Rate 57 L 60 Pulse Rate [Right Radial] Respiratory Rate Blood Pressure Blood Pressure [Le ft Upper Arm] Blood Pressure [Ri ght Arm] Pulse Oximetry 96 97 96 Oxygen Delivery Me thod 07/20/24 13:17 07/20/24 13:18 07/20/24 13:22 Temperature Pulse Rate 57 L 60 66 Pulse Rate [Right Radial] Respiratory Rate Blood Pressure 100/58 L 97/86 Blood Pressure [Le ft Upper Arm] Blood Pressure [Ri ght Arm] Pulse Oximetry 96 96 97 Oxygen Delivery Me thod 07/20/24 13:27 07/20/24 13:30 07/20/24 13:32 Temperature Pulse Rate 51 L 54 L 58 L Pulse Rate [Right Radial] Respiratory Rate Blood Pressure 102/61 94/46 L Blood Pressure [Le ft Upper Arm] Blood Pressure [Ri ght Arm] Pulse Oximetry 95 96 97 Oxygen Delivery Me thod 07/20/24 13:37 07/20/24 13:43 07/20/24 13:52 Temperature Pulse Rate 56 L 70 69 Pulse Rate [Right Radial] Respiratory Rate Blood Pressure 114/63 108/75 112/64 Blood Pressure [Le ft Upper Arm] Blood Pressure [Ri ght Arm] Pulse Oximetry 97 96 95 Oxygen Delivery Me thod 07/20/24 13:57 07/20/24 14:17 07/20/24 14:48 Temperature Pulse Rate 69 74 68 Pulse Rate [Right Radial] Respiratory Rate Blood Pressure 110/63 110/67 114/52 L Blood Pressure [Le ft Upper Arm] Blood Pressure [Ri ght Arm] Pulse Oximetry 95 94 [facility] 15:02 07/20/24 15:03 07/20/24 15:30 Temperature Pulse Rate 73 71 73 Pulse Rate [Right Radial] Respiratory Rate Blood Pressure 115/73 Blood Pressure [Le ft Upper Arm] Blood Pressure [Ri ght Arm] Pulse Oximetry 92 92 95 [facility] 07/[facility]/24 15:45 07/20/24 16:00 07/20/24 16:02 Temperature Pulse Rate 75 74 70 Pulse Rate [Right Radial] Respiratory Rate Blood Pressure 105/60 Blood Pressure [Le ft Upper Arm] Blood Pressure [Ri ght Arm] Pulse Oximetry 92 93 92 [facility] 07/[facility]/24 16:15 07/20/24 16:44 07/20/24 16:45 Temperature Pulse Rate 78 78 78 Pulse Rate [Right Radial] Respiratory Rate Blood Pressure Blood Pressure [Le ft Upper Arm] Blood Pressure [Ri ght Arm] Pulse Oximetry 93 96 100 [facility] 07/20/24 16:46 07/20/24 17:00 07/20/24 17:02 Temperature Pulse Rate 71 69 72 Pulse Rate [Right Radial] Respiratory Rate Blood Pressure 121/72 109/59 L Blood Pressure [Le ft Upper Arm] Blood Pressure [Ri ght Arm] Pulse Oximetry 100 92 92 [facility] 07/20/24 17:15 07/20/24 17:30 07/20/24 17:33 Temperature Pulse Rate 70 58 L 67 Pulse Rate [Right Radial] Respiratory Rate Blood Pressure 111/53 L Blood Pressure [Le ft Upper Arm] Blood Pressure [Ri ght Arm] Pulse Oximetry 91 94 87 L [facility] 07/20/24 17:45 07/20/24 17:55 07/20/24 18:26 Temperature 97.4 F L 97.2 F L Pulse Rate 57 L Pulse Rate [Right Radial] 71 Respiratory Rate 20 20 Blood Pressure Blood Pressure [Le ft Upper Arm] Blood Pressure [Ri ght Arm] 130/74 Pulse Oximetry 94 94 [facility] Hospitalist - H&P: Result Labs Labs: Short CBC 07/20/24 07/20/24 Range/Units 12:35 14:40 WBC 11.24 H 13.01 H (4.50-11.00) K/uL Hgb 15.1 15.9 (13.5-17.5) gm/dL Hct 43.0 45.1 (37.0-53.0) % Plt Count 209 174 (140-440) K/uL BMP 07/20/24 12:35 Sodium 134 L Potassium 3.3 L Chloride 99 Carbon Dioxide 26 BUN 20 Creatinine 1.1 Glucose 150 H Calcium 9.0 Cardiac Enzymes 07/20/24 Range/Units 12:35 Troponin I < 0.01 L (0.01-0.04) ng/mL Liver Function 07/20/24 Range/Units 12:35 Total Bilirubin 1.5 (0.1-1.5) mg/dL Direct Bilirubin 0.3 (0.0-0.5) mg/dL AST 30 (12-35) U/L ALT 24 (4-50) U/L Alkaline Phosphatase 89 (40-150) U/L Albumin 4.4 (3.3-5.0) g/dL Urine 07/20/24 Range/Units 18:15 Urine Color Yellow (Yellow) Urine Appearance Clear (Clear) Urine pH 6.0 (5.0-8.5) Ur Specific [place] 1.010 (1.000-1.030) Urine Protein Negative (Negative) Urine Glucose (UA) Negative (Negative) Assessment and Plan Assessment and plan (1) Acute hypotension: Problem comment: - presented to ED on 07/20/24 with BP of 60/30 after falling and sustaining a rib fracture (after prostate biopsy) - ddx: iatrogenic (took all medications on 07/20 with no food prior to procedure), dehydration, arrythmia, CHF, infection - history of essential HTN; on BID Metoprolol, BID Amlodipine (20mg/day), Hyzaar - clinically does not appear septic, reassuring VS, imaging (no central PE, no dissection) and exam - received 1 dose of Zosyn in ED (07/20); given clinical stability, will not continue but monitor closely. Blood and urine cultures pending - BP has normalized upon arrival to the floor. Will give home dose of Metoprolol and hold the Amlodipine and Hyzaar at this time - follow rhythm on telemetry, repeat troponin, low dose IVFs Status: Acute (2) Hyperlipidemia: Problem comment: - continue home dose of statin Status: Acute (3) Atrial fibrillation: Problem comment: - sinus rhythm since ablation in 2020 - Metoprolol, anticoagulated on Eliquis - last TTE 2020: Final Impressions: 1. Technically limited exam. 2. Normal LV size, mildly increased wall thickness, normal global systolic function with an estimated EF of 60 - 65%. 3. Right ventricular cavity size is mildly enlarged, global systolic RV functi on is normal. 4. 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 Status: Acute (4) Hypokalemia: Problem comment: - history of this, likely iatrogenic - replace and follow Status: Acute Plan - per above - partner updated at bedside, questions answered
[2024-07-20] MEDS: APIXABAN 5 MG TABLET PO (20:14)
[2024-07-20] MEDS: OXYCODONE 5 MG TABLET PO ×2 (20:15→22:51)
[2024-07-20] MEDS: ACETAMINOPHEN 325 MG TABLET 975 MG PO (20:15)
[2024-07-20] MEDS: SODIUM CHLORIDE 0.9 % (FLUSH) 10 ML SYRINGE 5 ML IVF (20:35)
[2024-07-20] MEDS: ATORVASTATIN CALCIUM 40 MG TABLET PO (20:35)
[2024-07-20] MEDS: 0.9 % SODIUM CHLORIDE 1000 ml 1,000 ML 125 ML IV (20:35)
[2024-07-20] MEDS: POTASSIUM BICARB 25 MEQ EFFERVESCENT TAB PO ×2 (20:42→22:42)
[2024-07-21] MEDS: 0.9 % SODIUM CHLORIDE 1000 ml 1,000 ML 125 ML IV (03:34)
[2024-07-21] MEDS: ACETAMINOPHEN 325 MG TABLET 975 MG PO ×2 (03:34→12:06)
[2024-07-21] MEDS: OXYCODONE 5 MG TABLET PO ×2 (03:35→08:54)
[2024-07-21 03:40] VITALS: BP 121/69; PULSE 70; RESP 18; TEMP 36.1; O2SAT 92
[2024-07-21 06:18] LABS: Lactate* 1.3 mmol/L (0.5-1.9)
[2024-07-21 06:20] LABS: Basophils Absolute Auto 0.03 K/uL (0.00-0.30); Basophils Percent Auto 0.4 % (0.0-3.0); Eosinophils Absolute Auto 0.15 K/uL (0.00-0.50); Hematocrit 40.6 % (37.0-53.0); Hemoglobin* 14.5 gm/dL (13.5-17.5); Immature Granulocytes Abs Auto 0.01 K/uL (0.00-0.30); Immature Granulocytes Pct Auto 0.1 %; Lymphocytes Percent Auto 15.8 % (20-44); Mean Corpuscular HGB Conc 36 gm/dL (32-36); Mean Corpuscular Hemoglobin 31 pg (26-34); Mean Corpuscular Volume 85 fL (80-100); Neutrophils Absolute Auto 5.33 K/uL (1.7-7.0); Neutrophils Percent Auto 70.7 % (42.0-72.0); Platelet Count* 158 K/uL (140-440); RDW Coefficient of Variation % 12.6 % (11.5-15.5); Red Blood Count 4.76 m/uL (4.30-5.90); White Blood Count* 7.54 K/uL (4.50-11.00)
[2024-07-21 06:23] LABS: Slide Review Reflex No
[2024-07-21 06:35] LABS: Hemoglobin A1C* 5.4 % (0-5.6)
--- NOTE | 2024-07-21 06:45 | PC.NURSE ---
End of shift note [id number]: Pt alert & oriented x 4 and able to make needs known. PERRLA. IV to R AC patent with NS running per order. VSS. Pt has been afebrile and on RA throughout the shift. He transfers/ambulates with SBA using GB. He has been continent of bowel and bladder and was noted to have one loose stool last evening though did receive dose of IV Zosyn in ED yesterday per documentation. Oral potassium doses administered per order. PRN medications given for c/o 5-8/10 pain to L rib cage due to fx sustained after fall yesterday before admission. Pt on telemetry with NSR noted. Color Straining Bag Washer did note prolonged QT and elevated QTC with first telemetry printing (Dr. Mast update) though QT noted to be improved (WNL) with last printing. Pt has been refusing gripper socks though is compliant with wearing tennis shoes when out of bed. HS dose of Metoprolol held per order due to SBP of 112. Pt slept well overnight. Call light within reach and bed alarm on due to fall sustained yesterday.
[2024-07-21 06:54] LABS: Chloride* 103 mmol/L (96-114); Potassium* 3.3 mmol/L (3.6-5.1); Sodium* 134 mmol/L (135-149)
[2024-07-21 06:56] LABS: Creatinine* 0.7 mg/dL (0.5-1.5); Est. Creatinine Clearance* 64.69; Estimated Glomerular Filt Rate 101 ml/min
[2024-07-21 06:57] LABS: Anion Gap 5 mEq/L (7-15); Blood Urea Nitrogen* 16 mg/dL (7-30); Calcium* 8.7 mg/dL (8.4-10.6); Carbon Dioxide* 26 mmol/L (20-32); Glucose* 101 mg/dL (60-115)
[2024-07-21 06:58] LABS: Magnesium* 1.9 mg/dL (1.5-2.6)
[2024-07-21 07:11] LABS: Troponin I* < 0.01 ng/mL (0.01-0.04)
[2024-07-21 08:44] VITALS: BP 120/72; PULSE 77; RESP 16; TEMP 36.4; O2SAT 92
[2024-07-21] MEDS: APIXABAN 5 MG TABLET PO (08:53)
[2024-07-21] MEDS: OMEPRAZOLE 20 MG CAPSULE DR PO (08:53)
[2024-07-21] MEDS: METOPROLOL TARTRATE 25 MG TABLET PO (08:53)
[2024-07-21] MEDS: POTASSIUM BICARB 25 MEQ EFFERVESCENT TAB 50 MEQ PO (08:54)
[2024-07-21 10:41] VITALS: PULSE 76
[2024-07-21 11:34] VITALS: BP 108/66; PULSE 64; RESP 16; TEMP 36.4; O2SAT 92
--- NOTE | 2024-07-21 12:10 | PC.NURSE ---
Patient discharged home with significant other. Pain was controlled with Tylenol and Oxy. Vital signs within normal limits. Denies nausea. Tolerating a regular diet. Voiding without difficulty. No blood noted. Had a BM last evening. Ambulated independently. Bruising on left lower back. patient doing Incentive spirometer 10X/hour and doing well with this. Education provided to patient and to significant other. F/U appointment made with Gerard to address potassium and rib fractures. Patient will call to schedule urology follow up appointment. All questions answered. PIV taken out and catheter intact. Left via wheelchair escort.
--- NOTE | 2024-07-21 13:56 | PM.DS1 ---
DS: Providers Provider Date Seen: 07/21/24 Date of admission: 07/20/24 18:21 Primary care physician: SIDDHARTH Thompson Admitting Clinician: Sera Mast MD Consults: 07/21/24 00:49 Consult to Physical Therapy [CONS] Routine Comment: Reason(s) for PT Consult:: Recent Falls Any Restrictions?:: No Restrictions Attending Physician on discharge: TOMA Gonzales[facility] Date of Discharge: 07/21/24 DS: Diagnosis Discharge Diagnosis (1) Acute hypotension: Status: Resolved Problem details: - presented to ED on 07/20/24 with BP of 60/30 after falling and sustaining a rib fracture (after prostate biopsy) - ddx: iatrogenic (took all medications on 07/20 with no food prior to procedure), dehydration, arrythmia, CHF, infection - history of essential HTN; on BID Metoprolol, BID Amlodipine (20mg/day), Hyzaar - clinically does not appear septic, reassuring VS, imaging (no central PE, no dissection) and exam - received 1 dose of Zosyn in ED (07/20); given clinical stability, will not continue but monitor closely. Blood and urine cultures pending - BP has normalized upon arrival to the floor. Will give home dose of Metoprolol and hold the Amlodipine and Hyzaar at this time - follow rhythm on telemetry, repeat troponin, low dose IVFs Telemetry overnight without abnormalities, troponins unremarkable, hypotension has resolved with systolics > 120. Symptomatically improved, has returned to baseline. (2) Hyperlipidemia: Status: Acute Problem details: - continue home dose of statin (3) Atrial fibrillation: Status: Acute Problem details: - sinus rhythm since ablation in 2020 - Metoprolol, anticoagulated on Eliquis - last TTE 2020: Final Impressions: 1. Technically limited exam. 2. Normal LV size, mildly increased wall thickness, normal global systolic function with an estimated EF of 60 - 65%. 3. Right ventricular cavity size is mildly enlarged, global systolic RV function is normal. 4. 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 (4) Hypokalemia: Status: Acute Problem details: - history of this, likely iatrogenic. Is on Hyzaar. Oral supplement started. Recheck level with PCP. May need to continue supplement while on Hyzaar (5) Rib fracture: Status: Acute Problem details: Plain film shows Acute minimally displaced left 11th rib fracture. Continue Tylenol, oxycodone as needed. Sent home with incentive spirometry. Outpatient follow-up with PCP. DS: Summary Hospital Course Hospital Course: [age] year old male was admitted to the medical floor for hypotension with fall and traumatic rib fracture. Course of care and details as noted above. Hypotension has resolved prior to discharge, patient is back to baseline. Discharged home with outpatient follow-up with PCP. Remainder of chronic medical comorbidities were monitored and managed with home medications. Status at Discharge Functional status at discharge: independent ambulation Overall status at discharge: patient is back to baseline Time Spent with Patient Time attestation: Total time spent providing and/or coordinating discharge services: Time spent: Greater than 30 minutes Exam Narrative: Exam Narrative: PHYSICAL EXAM General: Pleasant, conversant, NAD Cardiovascular: RRR Pulmonary: No dyspnea Neurological: Alert, answering questions appropriately Skin: Warm, dry. Const: Vital Signs, click to edit/add: Vital Signs - 24 hr 07/20/24 13:57 07/20/24 14:17 07/20/24 14:48 Temperature Pulse Rate 69 74 68 Pulse Rate [Right Radial] Respiratory Rate Blood Pressure 110/63 110/67 114/52 L Blood Pressure [Le ft Arm] Blood Pressure [Ri ght Arm] Pulse Oximetry 95 94 92 [facility] 07/20/24 15:02 07/20/24 15:03 07/20/24 15:30 Temperature Pulse Rate 73 71 73 Pulse Rate [Right Radial] Respiratory Rate Blood Pressure 115/73 Blood Pressure [Le ft Arm] Blood Pressure [Ri ght Arm] Pulse Oximetry 92 92 95 [facility] 07/20/24 15:45 07/20/24 16:00 07/20/24 16:02 Temperature Pulse Rate 75 74 70 Pulse Rate [Right Radial] Respiratory Rate Blood Pressure 105/60 Blood Pressure [Le ft Arm] Blood Pressure [Ri ght Arm] Pulse Oximetry 92 93 92 [facility] 07/20/24 16:15 07/20/24 16:44 07/20/24 16:45 Temperature Pulse Rate 78 78 78 Pulse Rate [Right Radial] Respiratory Rate Blood Pressure Blood Pressure [Le ft Arm] Blood Pressure [Ri ght Arm] Pulse Oximetry 93 96 100 Oxygen Delivery Me thod 07/20/24 16:46 07/20/24 17:00 07/20/24 17:02 Temperature Pulse Rate 71 69 72 Pulse Rate [Right Radial] Respiratory Rate Blood Pressure 121/72 109/59 L Blood Pressure [Le ft Arm] Blood Pressure [Ri ght Arm] Pulse Oximetry 100 92 92 Oxygen Delivery Dc thod 07/20/24 17:15 07/20/24 17:30 07/20/24 17:33 Temperature Pulse Rate 70 58 L 67 Pulse Rate [Right Radial] Respiratory Rate Blood Pressure 111/53 L Blood Pressure [Le ft Arm] Blood Pressure [Ri ght Arm] Pulse Oximetry 91 94 87 L [facility] 07/20/24 17:45 07/20/24 17:55 07/20/24 18:26 Temperature 97.4 F L 97.2 F L Pulse Rate 57 L Pulse Rate [Right Radial] 71 Respiratory Rate 20 20 Blood Pressure Blood Pressure [Le ft Arm] Blood Pressure [Ri ght Arm] 130/74 Pulse Oximetry 94 94 [facility] Room Air 07/20/24 20:00 07/20/24 20:27 07/20/24 20:30 Temperature 97.2 F L Pulse Rate 82 Pulse Rate [Right Radial] 84 Respiratory Rate 18 18 Blood Pressure Blood Pressure [Le ft Arm] 112/56 L Blood Pressure [Ri ght Arm] Pulse Oximetry 91 91 Oxygen Delivery [facility] Room Air Room Air 07/20/24 23:00 07/20/24 23:00 07/20/24 23:37 Temperature 98.6 F Pulse Rate 79 Pulse Rate [Right Radial] 84 84 Respiratory Rate 18 18 Blood Pressure Blood Pressure [Le ft Arm] 116/56 L Blood Pressure [Ri ght Arm] Pulse Oximetry 91 Oxygen Delivery [facility] Room Air 07/21/24 03:40 07/21/24 08:44 07/21/24 10:41 Temperature 96.9 F L 97.5 F L Pulse Rate 76 Pulse Rate [Right Radial] 70 77 Respiratory Rate 18 16 Blood Pressure Blood Pressure [Le ft Arm] 121/69 120/72 Blood Pressure [Ri ght Arm] Pulse Oximetry 92 92 Oxygen Delivery [facility] Room Air Room Air 07/21/24 11:34 Temperature 97.5 F L Pulse Rate Pulse Rate [Right Radial] 64 Respiratory Rate 16 Blood Pressure Blood Pressure [Le ft Arm] 108/66 Blood Pressure [Ri ght Arm] Pulse Oximetry 92 Oxygen Delivery Me thod Room Air DS: Data Data Completed and Pending Pending studies at discharge: / Labs on day of discharge: Labs from last 24 hours 07/21/24 07/20/24 07/20/24 05:55 18:15 15:34 WBC 7.54 RBC 4.76 Hgb 14.5 Hct 40.6 MCV 85 MCH 31 MCHC 36 RDW Coeff of [place] 12.6 Plt Count 158 Neut % (Auto) 70.7 Lymph % (Auto) 15.8 L [place] % (Auto) 11.0 Eos % (Auto) 2.0 Baso % (Auto) 0.4 Neut # (Auto) 5.33 Lymph # (Auto) 1.20 [place] # (Auto) 0.80 Eos # (Auto) 0.15 Baso # (Auto) 0.03 Abs Immat Gran (auto) 0.01 Imm/Tot Granulo (auto) 0.1 D-Dimer Quant (PE/DVT) Sodium 134 L Potassium 3.3 L Chloride 103 Carbon Dioxide 26 Anion Gap 5 L BUN 16 Creatinine 0.7 Estimated Creat Clear 64.69 Estimated GFR 101 Glucose 101 Hemoglobin A1c 5.4 Lactate 1.3 1.8 Calcium 8.7 Magnesium 1.9 Troponin I < 0.01 L Urine Color Yellow Urine Appearance Clear Urine pH 6.0 Ur Specific [place] 1.010 Urine Protein Negative Urine Glucose (UA) Negative Urine Ketones Negative Urine Blood 2+ A Urine Nitrite Negative Urine Bilirubin Negative Urine Urobilinogen 0.2 Ur Leukocyte Esterase Negative Urine RBC 5-10 A Urine WBC 0-2 Ur Squamous Epith Cells Few Urine Bacteria None SARS-CoV-2 (PCR) Negative SARS-CoV-2 07/20/24 07/20/24 14:40 12:35 WBC 13.01 H RBC 5.27 Hgb 15.9 Hct 45.1 MCV 86 MCH 30 MCHC 35 RDW Coeff of [place] 12.6 Plt Count 174 Neut % (Auto) 86.9 H Lymph % (Auto) 5.5 L [place] % (Auto) 7.0 Eos % (Auto) 0.2 Baso % (Auto) 0.2 Neut # (Auto) 11.30 H Lymph # (Auto) 0.70 L [place] # (Auto) 0.90 Eos # (Auto) 0.00 Baso # (Auto) 0.00 Abs Immat Gran (auto) 0.00 Imm/Tot Granulo (auto) 0.2 D-Dimer Quant (PE/DVT) > 20.00 H Sodium Potassium Chloride Carbon Dioxide Anion Gap BUN Creatinine Estimated Creat Clear Estimated GFR Glucose Hemoglobin A1c Lactate Calcium Magnesium Troponin I Urine Color Urine Appearance Urine pH Ur Specific [place] Urine Protein Urine Glucose (UA) Urine Ketones Urine Blood Urine Nitrite Urine Bilirubin Urine Urobilinogen Ur Leukocyte Esterase Urine RBC Urine WBC Ur Squamous Epith Cells Urine Bacteria SARS-CoV-2 (PCR) Preliminary micro results at discharge 07/20/24 18:15 Urine Culture - Preliminary Urine,Clean Catch Culture in Progress Imaging Chest/rib film: Attestation: I have reviewed the pertinent imaging results. Radiologist's impression: Cardiovascular and mediastinum: Heart size and vasculature are normal in caliber and appearance. Lungs and pleural spaces: Lungs are clear. No sign of infiltrate or mass. No sign of pleural effusion. No pneumothorax. Bones and soft tissues: Acute minimally displaced left 11th rib fracture. IMPRESSION: Acute minimally displaced left 11th rib fracture. CT chest abdomen pelvis: Attestation: I have reviewed the pertinent imaging results. Radiologist's impression: CT chest, abdomen and pelvis acquired with 130 milliliters Isovue 370 IV contrast. COMPARISON: None. FINDINGS: CHEST: Cardiovascular structures: Heart size is normal. Coronary artery calcifications. Thoracic aorta and main pulmonary artery are normal in caliber. Mediastinum and osito: No mass or adenopathy. Lungs and pleura: Scattered atelectasis.. No suspicious nodules, infiltrates, or effusions. No pneumothorax. Chest wall and axilla: No mass or adenopathy. Bones: No suspicious bone lesions. Unremarkable for age. ABDOMEN AND PELVIS: Liver: Mild decreased hepatic attenuation. Few scattered tiny hepatic cysts. Gallbladder and bile ducts: Cholecystectomy Pancreas: Unremarkable. Spleen: Unremarkable. Adrenal glands: Unremarkable. Kidneys: Unremarkable. GI tract: Mild perirectal wall thickening and inflammatory stranding. Colonic diverticulosis. Trace mesenteric inflammation about the proximal sigmoid colon. No bowel obstruction. Vascular structures: Unremarkable. Lymph nodes: Unremarkable. Miscellaneous: Small volume peritoneal air in the right mesorectal space (series 2/image 265). No free air or significant free fluid. Pelvic Organs: Mild prostatomegaly subtle periprostatic inflammatory stranding. Bones: No suspicious bone lesions. Unremarkable for age. IMPRESSION: Mild prostatomegaly with mild rectal wall thickening and subtle periprostatic and perirectal inflammatory stranding. Additional small volume peritoneal air in the right mesorectal space. Constellation of findings are likely related to recent prostate biopsy. Superimposed prostatitis and proctitis could have a similar appearance and should be clinically excluded. No drainable fluid collections or large volume free intraperitoneal air. Colonic diverticulosis with trace mesenteric edema about the proximal sigmoid colon. Early acute diverticulitis not excluded. Recommend correlation with localized physical examination and laboratory values. Otherwise, no acute intra thoracic or intra-abdominal/pelvic abnormality. Additional chronic findings as above. Additional Comments Additional comments: No HPI, physical exam, or laboratory findings to support acute diverticulitis or proctitis/prostatitis Discharge Plan Discharge Disposition: Home, Self-Care Date of Admission: 07/20/24 18:21 Attending Provider on Discharge: Daisha Olvera Primary Care Provider: Alia Klein Condition: Stable Anticipated Discharge Date/Time: 07/21/24 10:56 Discharge Medications: New potassium chloride 20 mEq tablet extended release 20 meq PO BID Qty: 10 0RF oxycodone 5 mg Tablet 5 mg PO Q4H PRN (Reason: Pain) Qty: 15 0RF Continued atorvastatin 40 mg tablet 40 mg PO HS amlodipine 5 mg tablet 10 mg PO BID omeprazole 20 mg capsule,delayed release(DR/EC) 20 mg PO DAILY metoprolol tartrate 25 mg tablet 25 mg PO BID Eliquis 5 mg tablet 5 mg PO Q12H losartan-hydrochlorothiazide [Hyzaar] 100-25 mg tablet 1 tab PO DAILY multivitamin [Daily Multi-Vitamin] Tablet 1 tab PO DAILY omega 0-itd-tol-fish oil [Fish Oil] 1,000 mg (120 mg-180 mg) capsule 1 cap PO DAILY Discharge Orders: Discharge Order (Routine); Ordered 07/21/24 Ordered By: Daisha Olvera Patient Education: Potassium Chloride (By mouth), Oxycodone, Rapid Release (By mouth), Rib Fracture (GEN), Hypokalemia (GEN), Hypotension (GEN) Additional Instructions: For your rib fracture - continue to use incentive spirometry. Splint your side when coughing, sneezing. Take Tylenol every 6 hours as needed or Oxycodone when the pain is worse. Take potassium twice daily for the next 5 days and have your potassium level rechecked with your PCP. You may need to take this routinely while taking hydrochlorothiazide. Activity Level: Activity as Tolerated Discharge Diet: Regular Follow Up Appointments: Alia Klein PA [Primary Care Provider] - (Post hospital follow-up 5-7 days) Annette Whitaker DO [Staff Physician] - 07/28/24 11:15 am ([facility] for follow-up, go to [address] for appointment. ) Forms: [employer] Info Instructions
== END 2024-07-21 12:12 | disposition home or self-care (01) ==
LOC: ED 18:12 → MEDSURG 18:22
PROVIDERS: Admitting Provider Family Medicine; Emergency Provider Family Medicine; PCP Physician Assistant; Visit Provider Family Medicine
DX: I95.89 Other hypotension (principal); S22.32XA Fracture of one rib, left side, initial encounter for closed fracture; W18.39XA Other fall on same level, initial encounter; I48.91 Unspecified atrial fibrillation; Z79.02 Long term (current) use of antithrombotics/antiplatelets; E87.6 Hypokalemia; E78.5 Hyperlipidemia, unspecified; I10 Essential (primary) hypertension; R00.1 Bradycardia, unspecified; R42 Dizziness and giddiness; R11.0 Nausea; R73.09 Other abnormal glucose; R82.90 Unspecified abnormal findings in urine
CPT/HCPCS: 36415; 71101; 71260; 74177; 80048; 80076; 81001; 83036; 83605; 83735; 84484; 85025; 85379; 87040; 87086; 87635; 93005; 94761; 96361; 96365; 97161; 99285; G0378; A9270; J2543; J7030; Q9967